=== PATIENT | female | born 1965 | race American Indian/Alaskan Native ===

== ENCOUNTER 2017-05-12 17:53 | Emergency (ER) | payer OTHER ==
[2017-05-12] MEDS ORDERED: TYLENOL ONE (18:52)
[2017-05-12 18:54] VITALS: BP 150/79
[2017-05-12] MEDS ORDERED: TYLENOL PO ONE (18:54)
--- NOTE | 2017-05-12 22:10 | Emergency Department Report ---
Chief Complaint: Headache Stated Complaint: HEADACHE Time Seen by Provider: 05/12/17 21:58 - HPI History of Present Illness: This is a 52-year-old female nontoxic, well nourished in appearance, no acute signs of distress presents to the ED with c/o of headache, left shoulder pain, and neck pain x1 day. Patient stated she was at a store and a table from the shelf landed on her left occipital lobe region, left-sided neck and shoulder region. Patient denies loss of consciousness, chest pain, shortness of breath, blurry vision or visual changes, nausea or vomiting. - Exam Vital Signs: Vital Signs 05/12/17 05/12/17 18:48 18:55 Temperature 99.2 F Pulse Rate 77 Respiratory 16 16 Rate Blood Pressure 150/79 O2 Sat by Pulse 97 Oximetry Physical Exam: GENERAL: The patient is a well-developed, well-nourished in no apparent distress. Patient is alert and acting appropriately for age. Alert and oriented 3, no apparent distress, normal gait, atraumatic. NECK: Tenderness over cervical spinal. No carotid bruits. No lymphadenopathy or thyromegaly. No meningitic signs are noted. LUNGS: Clear to auscultation. Non labor breathing. No intercostal retractions. Symmetrical with respiration, no wheezing, no rales, or crackles. EXTREMITIES: Tenderness over deltoid and pain with ROM of shoulder. Without any cyanosis, clubbing, rash, lesions or edema. Peripheral pulses intact. Capillary refill less than 2 seconds. NEUROLOGIC: Cranial nerves II through XII are grossly intact. Alert and oriented x 3. Normal gait. Symmetrical strength and sensation. Reflexes 2+ throughout. Cerebellar testing normal. GCS score of 15. MSE screening note: Focused history and physical exam performed. Due to findings the following was ordered: 1- This initial assessment and is subject to change based on patients health status and clinical progression. Further workup is needed and ordered. Patient was instructed to not elope from ED as their condition may be serious if not clinically assessed and managed. 2-Ct of head/brain, cervical spine ordered. 3-Xray of left shoulder obtained. 4- Patient received Tylenol prior to my interview. 5-Case has been signed out to ROMULO Lindo. Patient discussed with doctor:: [facility] ED Disposition for MSE Condition: Stable Referrals: PRIMARY CAREMD [Primary Care Provider] - 3-5 Days
--- NOTE | 2017-05-12 22:33 | Cat Scan Report ---
FINAL REPORT PROCEDURE: CT HEAD/BRAIN WO CON TECHNIQUE: Computerized tomography of the head was performed without contrast material. HISTORY: headache s/p trauma COMPARISON: No prior studies are available for comparison. FINDINGS: Skull and scalp: Normal. Paranasal sinuses: An air-fluid level is noted in the right sphenoid sinus. There is partial opacification of bilateral mastoid air cells.. Ventricles and subarachnoid spaces: Normal. Cerebrum: No evidence of hemorrhage, acute infarction or mass . Cerebellum and brainstem: No evidence of hemorrhage, acute infarction or mass. Vasculature: Atherosclerotic calcification is noted involving bilateral internal carotid and right middle cerebral arteries.. Comments: None. IMPRESSION: No acute intracranial abnormality Right sphenoid acute sinusitis Evidence of bilateral mastoiditis
--- NOTE | 2017-05-12 22:48 | Cat Scan Report ---
FINAL REPORT PROCEDURE: CT CERVICAL SPINE WO CON TECHNIQUE: Computerized tomography of the cervical spine was performed from the skull base to T1 without contrast material. HISTORY: headache s/p trauma COMPARISON: No prior studies are available for comparison. FINDINGS: There is straightening of the cervical spine. Visualized bilateral lung apices are clear. Atherosclerotic calcification is noted involving bilateral carotid bifurcations. An acute fracture is not identified. C1-2: No significant abnormality. C2-3: No significant abnormality. C3-4: There is mild degree central disc protrusion/herniation causing mild to moderate degree spinal canal stenosis. C4-5: Mild degree broad-based disc protrusion is noted eccentric to the left causing mild degree spinal canal stenosis. C5-6: There is partial calcification/ossification of the posterior longitudinal ligament eccentric to the right which in combination with disc osteophyte complexes producing mild degree spinal canal stenosis. There is also [id number] degree right neural foraminal stenosis secondary to uncovertebral degenerative change.. C6-7: There is partial ossification of the posterior lung Carli alignment which in combination with osteophyte formation is producing mild degree spinal canal stenosis. There is also mild degree right neural foraminal stenosis secondary to uncovertebral degenerative change.. C7-T1: Ossification of the posterior longitudinal ligament is noted without significant spinal canal compromise.. Other: No additional findings. IMPRESSION: No acute fracture Multilevel spinal canal or neural foraminal stenosis as described above. MRI is recommended for further evaluation. Straightening of the cervical spine is most likely secondary to spasm or positioning..
--- NOTE | 2017-05-12 23:08 | XRay Report ---
FINAL REPORT PROCEDURE: XR SHOULDER 2+V LT TECHNIQUE: LEFT shoulder radiographs including AP views in internal and external rotation and abduction. CPT 36519 HISTORY: shoulder pain COMPARISON: No prior studies are available for comparison. FINDINGS: Fracture (s) and/or Dislocation(s): None . Joint space(s): Normal . Soft tissues: Normal . Bone mineralization: Normal . Foreign bodies: None . IMPRESSION: Normal Examination
--- NOTE | 2017-05-12 23:23 | Emergency Department Report ---
ED Head Trauma HPI - General Chief complaint: Headache Stated complaint: HEADACHE Time Seen by Provider: 05/12/17 21:58 Source: patient Mode of arrival: Ambulatory Limitations: No Limitations - History of Present Illness Initial comments: 52-year-old female presents with complaint of throbbing headache status post accidental injury. Patient states that while moving atable [place] fell and hit her on the back of the head and left shoulder yesterday. Patient denies loss of consciousness. States she was dazed. States that she has some pain when moving her neck as well. Patient is awake alert and oriented 3. Fully lucid. Denies any lacerations. Ambulatory without assistance. MD Complaint: head injury, head pain Onset/Timin -: days(s) Mechanism of Injury: unsure Location: occipital Loss of Consciousness: no Previous Trauma to this Area: No Place: other (restaurant) Other Injuries: none Associated Symptoms: other (headache) - Related Data Home Medications Medication Instructions Recorded Confirmed Last Taken Aspirin [Aspirin BABY CHEW TAB] 81 mg PO DAILY 07/23/14 12/28/15 12/21/15 Atenolol [Tenormin] 25 mg PO DAILY 07/23/14 12/28/15 12/28/15 Cetirizine HCl [ZyrTEC] 10 mg PO DAILY 07/23/14 12/28/15 07/22/14 Hydrochlorothiazide [Hctz] 25 mg PO QDAY 07/23/14 12/28/15 12/28/15 Omeprazole Magnesium [PriLOSEC Otc] 20 mg PO QDAY 07/23/14 12/28/15 12/27/15 Tamoxifen Citrate 20 mg PO QDAY 07/23/14 12/28/15 12/27/15 amLODIPine [Norvasc] 5 mg PO DAILY 07/23/14 12/28/15 12/28/15 Previous Rx's Medication Instructions Recorded Last Taken Type Acetaminophen/Codeine [Tylenol #3] 1 tab PO Q6H PRN #10 tab 07/23/14 Unknown Rx Erythromycin [Erythromycin Ophth 10 applic OS Q4H #1 tube 07/23/14 Unknown Rx Oint] Ibuprofen [Motrin 800 MG tab] 800 mg PO Q8H PRN #20 tablet 07/23/14 12/27/15 Rx Cyclobenzaprine [Flexeril] 10 mg PO TID PRN #6 tablet 05/12/17 Unknown Rx Ibuprofen [Motrin] 800 mg PO Q8HR PRN #30 tablet 05/12/17 Unknown Rx Allergies/Adverse reactions: Allergies Allergy/AdvReac Type Severity Reaction Status Date / Time tramadol Allergy Itching Verified 05/12/17 18:54 ED Review of Systems ROS: Stated complaint: HEADACHE Other details as noted in HPI Constitutional: denies: chills, fever Eyes: denies: eye pain, eye discharge, vision change ENT: denies: ear pain, throat pain Respiratory: denies: cough, shortness of breath, wheezing Cardiovascular: denies: chest pain, palpitations Endocrine: no symptoms reported Gastrointestinal: denies: abdominal pain, nausea, diarrhea Genitourinary: denies: urgency, dysuria, discharge Musculoskeletal: denies: back pain, joint swelling, arthralgia Skin: denies: rash, lesions Neurological: headache. denies: weakness, paresthesias Psychiatric: denies: anxiety, depression Hematological/Lymphatic: denies: easy bleeding, easy bruising ED Past Medical Hx - Past Medical History Previous Medical History?: Yes Hx Hypertension: Yes Hx GERD: Yes Hx Liver Disease: (Hep C) Hx Renal Disease: No Hx Arthritis: Yes - Surgical History Past Surgical History?: Yes Additional Surgical History: left lumpectomy, tubal ligation - Social History Smoking Status: Former Smoker Substance Use Type: None - Medications Home Medications: Home Medications Medication Instructions Recorded Confirmed Last Taken Type Acetaminophen/Codeine [Tylenol #3] 1 tab PO Q6H PRN #10 tab 07/23/14 12/28/15 Unknown Rx Aspirin [Aspirin BABY CHEW TAB] 81 mg PO DAILY 07/23/14 12/28/15 12/21/15 History Atenolol [Tenormin] 25 mg PO DAILY 07/23/14 12/28/15 12/28/15 History Cetirizine HCl [ZyrTEC] 10 mg PO DAILY 07/23/14 12/28/15 07/22/14 History Erythromycin [Erythromycin Ophth 10 applic OS Q4H #1 tube 07/23/14 12/28/15 Unknown Rx Oint] Hydrochlorothiazide [Hctz] 25 mg PO QDAY 07/23/14 12/28/15 12/28/15 History Ibuprofen [Motrin 800 MG tab] 800 mg PO Q8H PRN #20 tablet 07/23/14 12/28/15 Rx Omeprazole Magnesium [PriLOSEC Otc] 20 mg PO QDAY 07/23/14 12/28/15 12/27/15 History Tamoxifen Citrate 20 mg PO QDAY 07/23/14 12/28/15 12/27/15 History amLODIPine [Norvasc] 5 mg PO DAILY 07/23/14 12/28/15 12/28/15 History Cyclobenzaprine [Flexeril] 10 mg PO TID PRN #6 tablet 05/12/17 Unknown Rx Ibuprofen [Motrin] 800 mg PO Q8HR PRN #30 tablet 05/12/17 Unknown Rx ED Physical Exam - General Limitations: No Limitations General appearance: alert, in no apparent distress - Head Head exam: Present: atraumatic, normocephalic - Eye Eye exam: Present: normal appearance, PERRL, EOMI - ENT ENT exam: Present: mucous membranes moist - Neck Neck exam: Present: normal inspection, full ROM - Respiratory Respiratory exam: Present: normal lung sounds bilaterally. Absent: respiratory distress - Cardiovascular Cardiovascular Exam: Present: regular rate, normal rhythm. Absent: systolic murmur, diastolic murmur, rubs, gallop - GI/Abdominal GI/Abdominal exam: Present: soft, normal bowel sounds - Extremities Exam Extremities exam: Present: normal inspection - Back Exam Back exam: Present: normal inspection - Neurological Exam Neurological exam: Present: alert, oriented X3, CN II-XII intact, normal gait - Expanded Neurological Exam Expanded Patient oriented to: Present: person, place, time Cranial nerves: EOM's Intact: Normal, Facial Sensation: Normal Sensory exam: Upper Extremity Light Touch: Normal, Lower Extremity Light Touch: Normal Motor strength exam: RUE: 5, LUE: 5, RLE: 5, LLE: 5 Best Eye Response (Mark): (4) open spontaneously Best Motor Response (Mark): (6) obeys commands Best Verbal Response (Velma): (5) oriented Mark Total: 15 - Psychiatric Psychiatric exam: Present: normal affect, normal mood - Skin Skin exam: Present: warm, dry, intact, normal color. Absent: rash ED Course Vital Signs 05/12/17 05/12/17 18:48 18:55 Temperature 99.2 F Pulse Rate 77 Respiratory 16 16 Rate Blood Pressure 150/79 O2 Sat by Pulse 97 Oximetry - Medical Decision Making A/P: Concussion, minor head injury, left shoulder musculoskeletal pain 1-CT head and C-spine show some degenerative changes but no acute trauma. X- ray shoulder unremarkable. Range of motion left upper extremity fully intact. CT report mentions mastoiditis. There are no clinical signs of mastoiditis on my examination of the patient 2-Cranial nerves 2, 3, 4, 5, 6, 7, 8,10, 11, 12 intact on clinical exam, patient is fully lucid awake alert and oriented 3 conversant. Denies any upper or lower extremity paresthesias and has 5/5 strength in bilateral upper and lower extremities on clinical exam. 3- follow-up with primary medical doctor this week 4- patient given precautions, instructed to return to the ED for any confusion, lethargy, chest pain, shortness of breath, abdominal pain, inability to tolerate by mouth, paresthesias, inability to ambulate. 5- pt independently ambulatory without assistance upon discharge - NEXUS Criteria Focal neurological deficit present: No Midline spinal tenderness present: No Altered level of consciousness: No Intoxication present: No Distracting injury present: No NEXUS results: C-Spine can be cleared clinically by these results. Imaging is not required. Critical care attestation.: If time is entered above; I have spent that time in minutes in the direct care of this critically ill patient, excluding procedure time. ED Disposition Clinical Impression: Minor head injury Qualifiers: Encounter type: initial encounter Qualified Code(s): S00.90XA - Unspecified superficial injury of unspecified part of head, initial encounter Headache Qualifiers: Headache type: other headache syndrome Qualified Code(s): G44.89 - Other headache syndrome Disposition: DC-01 TO HOME OR SELFCARE Is pt being admited?: No Does the pt Need Aspirin: No Condition: Stable Instructions: Minor Head Injury (ED), Acute Headache (ED), Post Concussion Syndrome (ED) Prescriptions: Cyclobenzaprine [Flexeril] 10 mg PO TID PRN #6 tablet PRN Reason: Muscle Spasm Ibuprofen [Motrin] 800 mg PO Q8HR PRN #30 tablet PRN Reason: Headache Referrals: [facility] [Outside] - 3-5 Days [facility] [Outside] - 3-5 Days Forms: Accompanied Note, Work/School Release Form(ED) Time of Disposition: 23:46
== END 2017-05-12 23:50 | disposition home or self-care (01) ==
LOC: ED 17:53
DX: S09.8XXA Other specified injuries of head, initial encounter (principal); G44.89 Other headache syndrome; M25.512 Pain in left shoulder; Z79.82 Long term (current) use of aspirin; Z88.8 Allergy status to other drugs, medicaments and biological substances; I10 Essential (primary) hypertension; K21.9 Gastro-esophageal reflux disease without esophagitis; M19.90 Unspecified osteoarthritis, unspecified site; Z87.891 Personal history of nicotine dependence; W17.89XA Other fall from one level to another, initial encounter; Y93.89 Activity, other specified; Y92.89 Other specified places as the place of occurrence of the external cause; Y99.8 Other external cause status
CPT/HCPCS: 70450; 72125

== ENCOUNTER 2017-11-05 15:04 | Outpatient (CLI) | payer OTHER ==
--- NOTE | 2017-11-05 16:14 | XRay Report ---
XRAY BILATERAL KNEE THREE VIEWS EACH: 11/05/17 15:04:00 CLINICAL: Bilateral knee pain. FINDINGS: Right: Osteoarthritis with narrowing of the medial joint space and small medial osteophytes. The narrowing of the joint space is accentuated with standing. Patellofemoral osteophytes. Quadriceps and patellar insertion enthesophytes. No joint effusion. No fracture or dislocation. Normal soft tissues. Left: Osteoarthritis with moderate loss of the medial joint space with accentuation on standing. Small medial osteophytes. Patellofemoral osteophytes. Quadriceps and patellar insertion enthesophytes. No joint effusion. No fracture or dislocation. Normal soft tissues. 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 Bilateral quadriceps and patellar tendon enthesopathy.
== END 2017-11-05 15:05 | disposition home or self-care (01) ==
LOC: SPVIMAG 15:04
PROVIDERS: ATTEND Orthopaedic Surgery
DX: M17.0 Bilateral primary osteoarthritis of knee (principal); M76.52 Patellar tendinitis, left knee; M76.51 Patellar tendinitis, right knee; I10 Essential (primary) hypertension; E78.00 Pure hypercholesterolemia, unspecified; K21.9 Gastro-esophageal reflux disease without esophagitis; M19.90 Unspecified osteoarthritis, unspecified site; Z87.891 Personal history of nicotine dependence; Z88.6 Allergy status to analgesic agent